=== PATIENT | female | born 2000 | race African-American/Black ===

== ENCOUNTER 2020-12-20 04:36 | Emergency (ER) | payer OTHER ==
[2020-12-20 04:43] VITALS: BP 111/67; PULSE 95; RESP 16; TEMP 97.8
[2020-12-20] MEDS ORDERED: SULFAMETH-TMP DS STARTER PACK 2 TAB BTL PO STA (05:10)
[2020-12-20] MEDS ORDERED: SULFAMETHOX-TMP 800-160MG 1 EACH TAB PO STA (05:10)
[2020-12-20] MEDS ORDERED: AMOXIC-POT CLAV 875-125MG 1 EACH TAB PO STA (05:10)
[2020-12-20] MEDS ORDERED: AMOXIC-POT CLAV 875MG STARTER PACK 2 TAB BTL PO STA (05:10)
--- NOTE | 2020-12-20 05:11 | ED ---
Skin/Abscess/FB HPI - General Chief complaint: Skin/Abscess/Foreign Body Stated complaint: Abscess Time Seen by Provider: 12/20/20 04:37 Source: patient Mode of arrival: ambulatory Limitations: no limitations - Related Data Previous Rx's Medication Instructions Recorded Amoxic-Pot Clav 875-125Mg 1 tab PO Q12HR #20 tablet 12/20/20 [Augmentin 875-125] Sulfamethox-Tmp 800-160Mg [Bactrim 2 tab PO BID #40 tab 12/20/20 DS 800-160 mg] Allergies Allergy/AdvReac Type Severity Reaction Status Date / Time No Known Allergies Allergy Verified 12/20/20 04:43 Review of Systems ROS Statement: Those systems with pertinent positive or pertinent negative responses have been documented in the HPI. ROS Other: All systems not noted in ROS Statement are negative. Past Medical History Past Medical History: No Reported History History of Any Multi-Drug Resistant Organisms: None Reported Past Surgical History: No Surgical Hx Reported Past Psychological History: No Psychological Hx Reported Smoking Status: Never smoker Past Alcohol Use History: Occasional Past Drug Use History: None Reported General Exam Limitations: no limitations Course Vital Signs 12/20/20 04:39 Temperature 97.8 F Pulse Rate 95 Respiratory 16 Rate Blood Pressure 111/67 O2 Sat by Pulse 99 Oximetry Disposition Clinical Impression: Abscess of vagina Disposition: HOME SELF-CARE Instructions (If sedation given, give patient instructions): Abscess Incision and Drainage (ED) Prescriptions: Amoxic-Pot Clav 875-125Mg [Augmentin 875-125] 1 tab PO Q12HR #20 tablet Sulfamethox-Tmp 800-160Mg [Bactrim DS 800-160 mg] 2 tab PO BID #40 tab Is patient prescribed a controlled substance at d/c from ED?: No Referrals: Rashida Garcia MD [Primary Care Provider] - 1-2 days Jonathon Whittaker DO [Doctor of Osteopathic Medicine] - 1-2 days
== END 2020-12-20 05:30 | disposition home or self-care (01) ==
LOC: EC 04:36
DX: N76.0 Acute vaginitis (principal)
CPT/HCPCS: 99283

== ENCOUNTER 2023-09-06 00:16 | Emergency (ER) | payer OTHER ==
[2023-09-06 00:24] VITALS: TEMP 98.7
[2023-09-06 00:40] LABS: Glucose,Whole Blood 90 mg/dL (70-110)
[2023-09-06 00:58] VITALS: BP 133/80
--- NOTE | 2023-09-06 01:26 | ED ---
General Adult HPI - General Chief complaint: Weakness Stated complaint: blood sugar Time Seen by Provider: 09/06/23 00:22 Source: patient Mode of arrival: ambulatory Limitations: no limitations - History of Present Illness Initial comments: 23-year-old female with no significant past medical history presenting to the ED with a chief complaint of anxiety. Patient states earlier she started to feel anxious and felt as if she was dehydrated. Upon arrival into the room and obtaining history patient states "I think I worked myself up". Patient states t hat she has no symptoms at this time. Denies chest pain or shortness of breath. No abdominal pain. No nausea or vomiting. No changes in bowel or bladder habits. Patient states that she would just like her blood sugar checked. No other complaints at this time. - Related Data Previous Rx's Medication Instructions Recorded Amoxic-Pot Clav 875-125Mg 1 tab PO Q12HR #20 tablet 12/20/20 [Augmentin 875-125] Sulfamethox-Tmp 800-160Mg [Bactrim 2 tab PO BID #40 tab 12/20/20 DS 800-160 mg] Allergies Allergy/AdvReac Type Severity Reaction Status Date / Time No Known Allergies Allergy Verified 09/06/23 00:21 Review of Systems ROS Statement: Those systems with pertinent positive or pertinent negative responses have been documented in the HPI. ROS Other: All systems not noted in ROS Statement are negative. Past Medical History Past Medical History: No Reported History Additional Past Medical History / Comment(s): PCOS History of Any Multi-Drug Resistant Organisms: None Reported Past Surgical History: No Surgical Hx Reported Past Psychological History: No Psychological Hx Reported Smoking Status: Never smoker Past Alcohol Use History: Occasional Past Drug Use History: None Reported General Exam Limitations: no limitations General appearance: alert, in no apparent distress Eye exam: Present: normal appearance Neck exam: Present: normal inspection Respiratory exam: Present: normal lung sounds bilaterally Cardiovascular Exam: Present: regular rate, normal rhythm, systolic murmur Neurological exam: Present: alert, oriented X3 Skin exam: Present: warm, dry Course Vital Signs 09/06/23 09/06/23 00:18 00:50 Temperature 98.7 F Pulse Rate 80 67 Respiratory 16 12 Rate Blood Pressure 119/79 133/80 O2 Sat by Pulse 99 98 Oximetry Medical Decision Making - Medical Decision Making Was pt. sent in by a medical professional or institution (Dr., PA, SITE AUDITOR, urgent care, hospital, or alf...) When possible be specific @ -No Did you speak to anyone other than the patient for history (EMS, parent, family, police, friend...)? What history was obtained from this source @ -No Did you review nursing and triage notes (agree or disagree)? Why? @ -I reviewed and agree with nursing and triage notes Were old charts reviewed (outside hosp., previous admission, EMS record, old EK G, old radiological studies, urgent care reports/EKG's, alf records)? Report findings @ -No old charts were reviewed Differential Diagnosis (chest pain, altered mental status, abdominal pain women, abdominal pain men, vaginal bleeding, weakness, fever, dyspnea, syncope, headache, dizziness, GI bleed, back pain, seizure, CVA, palpatations, mental health, musculoskeletal)? @ -Not applicable EKG interpreted by me (3pts min.). @ -None X-rays interpreted by me (1pt min.). @ -None done CT interpreted by me (1pt min.). @ -None done U/S interpreted by me (1pt. min.). @ -None done What testing was considered but not performed or refused? (CT, X-rays, U/S, labs)? Why? @ -Patient was offered basic laboratory studies and IV fluids however at this time declined. What meds were considered but not given or refused? Why? @ -None Did you discuss the management of the patient with other professionals (professionals i.e. CAREN Garcia, SITE AUDITOR, lab, RT, psych nurse, manager social responsibility, breaker layer, teacher, chief sales officer, skilled nursing case manager)? Give summary @ -No Was smoking cessation discussed for >3mins.? @ -No Was critical care preformed (if so, how long)? @ -No Were there social determinants of health that impacted care today? How? (Homelessness, low income, unemployed, alcoholism, drug addiction, transportation, low edu. Level, literacy, decrease access to med. care, custodial, rehab)? @ -No Was there de-escalation of care discussed even if they declined (Discuss DNR or withdrawal of care, Hospice)? DNR status @ -No What co-morbidities impacted this encounter? (DM, HTN, Smoking, COPD, CAD, Cancer, CVA, ARF, Chemo, Hep., AIDS, mental health diagnosis, sleep apnea, morbid obesity)? @ -None Was patient admitted / discharged? Hospital course, mention meds given and route , prescriptions, significant lab abnormalities, going to OR and other pertinent info. @ -Discharge 23-year-old female presenting to the ED after episode of anxiety. At this time patient would just like a blood sugar check and requesting no other testing be done. Blood sugar within normal limits. Offered basic laboratory studies and IV fluids however at this time patient declined. Patient would like to be discharged home. At this time vital signs stable afebrile. Patient discharged home in stable condition. Discussed return precautions with patient who verbalized agreement. Undiagnosed new problem with uncertain prognosis? @ -No Drug Therapy requiring intensive monitoring for toxicity (Heparin, Nitro, Insulin, Cardizem)? @ -No Were any procedures done? @ -No Diagnosis/symptom? @ -Anxiety Acute, or Chronic, or Acute on Chronic? @ -Acute Uncomplicated (without systemic symptoms) or Complicated (systemic symptoms)? @ -Uncomplicated Side effects of treatment? @ -No Exacerbation, Progression, or Severe Exacerbation? @ -No Poses a threat to life or bodily function? How? (Chest pain, USA, CT, pneumonia, PE, COPD, DKA, ARF, appy, cholecystitis, CVA, Diverticulitis, Homicidal, Suicidal, threat to staff... and all critical care pts) @ -No - Lab Data Lab Results 09/06/23 Range/Units 00:38 POC Glucose (mg/dL) 90 (70-110) mg/dL POC Glu [employer] Developer ID Jorge Dong Disposition Clinical Impression: Anxiety Disposition: HOME SELF-CARE Condition: Good Additional Instructions: Please return to the Emergency Department if symptoms worsen or any other concerns. Please follow-up with your primary care provider. Is patient prescribed a controlled substance at d/c from ED?: No Referrals: None,Stated [Primary Care Provider] - 1-2 days Time of Disposition: 01:28
[2023-09-06 01:55] VITALS: PULSE 70; RESP 16
== END 2023-09-06 01:34 | disposition home or self-care (01) ==
LOC: EC 00:16
DX: F41.9 Anxiety disorder, unspecified (principal)
CPT/HCPCS: 36415; 99284